=== PATIENT | male | born 1940 | race Caucasian/White ===

== ENCOUNTER 2018-01-24 14:39 | Emergency (ER) | END 2018-01-24 17:14 | disposition home or self-care (01) ==

== ENCOUNTER → 2019-02-06 | Day surgery (SDC) | payer MEDICARE, BC ==
[~2019-02-06] VITALS: Ht 172.7 cm; Wt 113.7 kg
[~2019-02-06] MED LIST: BENA1TAB3 PO; COUMADIN; DILT240C70 PO; FENTAnyl 50 MCG/ML VIAL ONE; FERR27TA PO; HCTZ DAILY; IRON DAILY; KETOROLAC; LIDOCAINE 4% SOLUTION 50 ML BTL ONE; MIDAZOLAM 1 MG/ML 2 ML INJ ONE; PANT20TA2 PO; PANTOPRAZOLE DAILY; WARFARIN
[2019-02-06 14:08] VITALS: Ht 172.7 cm; Wt 113.7 kg
--- NOTE | 2019-02-06 14:35 | PREAC ---
Date/Time of Note Date/Time of Note DATE: 02/06/19 TIME: 14:34 Anesthesia Eval and Record Evaluation Time Pre-Procedure Interview DATE: 02/06/19 TIME: 14:34 Age 78 Sex male NPO: 8 hrs Preoperative diagnosis egd Planned procedure egd Past Medical History Past Medical History: Includes Cardio: HTN, Other (hx of DVT on warfarin stopped december 15 ) GI: GERD, Obesity Heme: Anemia Surgery & Anesthesia Issues No known issue Meds Anticoagulation: No Beta Adriane within 24 hr: No Reason Beta Adriane not given: Pt. not on B-Adriane Reported Medications [Iron Daily] No Conflict Check 02/06/19 [Warfarin ] No Conflict Check 02/06/19 [Ketorolac ] No Conflict Check 02/06/19 [Pantoprazole Daily] No Conflict Check 02/06/19 [Hctz Daily] No Conflict Check 02/06/19 [Coumadin] No Conflict Check, 5 MG DAILY 11/16/13 Ferrous Sulfate (Iron) 1 Tab Tablet, 1 TAB PO BID 11/04/11 Pantoprazole* (Protonix*) 20 Mg Tablet.dr, 20 MG PO BID 11/04/11 Benazepril/Hydrochlorothiazide (Benazepril-Hctz 20-12.5 Mg Tab) 1 Tab Tablet, 1 PO DAILY 10/18/11 Diltiazem Hcl (Diltiazem Er) 240 Mg Capsule.cr, 1 PO DAILY 10/18/11 Meds reviewed: Yes Allergies Coded Allergies: No Known Allergy (Verified , 02/06/19) Allergies Reviewed: Yes Labs/Studies Labs Reviewed: Reviewed by anesthesiologist test: N/A Pre-procedure Exam Airway: Adequate mouth opening, Adequate thyromental dist Mallampati: Mallampati IV Teeth: Normal Lung: Normal Heart: Normal ASA Physical Status ASA physical status: 3 Emergency: None Pre-operative Attestations Prior to commencing anesthesia and surgery, the patient was re-evaluated, there was verification of: *The patient's identity *The results of appropriate recent lab work and preoperative vital signs *The above evaluation not changing prior to induction *Anesthetic plan, risk benefits, alternative and complications discussed with patient/family; questions answered; patient/family understands, accepts and wishes to proceed. SABINE ALLISON DO Feb 06, 2019 14:35
[2019-02-06 14:55] VITALS: BP 162/78; PULSE 76; RESP 20
--- NOTE | 2019-02-06 15:36 | PAC ---
Date/Time of Note Date/Time of Note DATE: 02/06/19 TIME: 15:36 Post-Anesthesia Notes Post-Anesthesia Note Last documented vital signs 133/62 69 18 99% 98 Activity: WNL Respiratory function: WNL Cardiovascular function: WNL Mental status: Baseline Pain reasonably controlled: Yes Hydration appropriate: Yes Nausea/Vomiting absent: Yes SABINE ALLISON DO Feb 06, 2019 15:36
[2019-02-06 16:01] VITALS: BP 152/77; RESP 14
== END | disposition home or self-care (01) ==
LOC: GIL 12:43
PROVIDERS: ATTEND Internal Medicine Gastroenterology
DX: K44.9 Diaphragmatic hernia without obstruction or gangrene (principal); K31.811 Angiodysplasia of stomach and duodenum with bleeding; I10 Essential (primary) hypertension; Z86.718 Personal history of other venous thrombosis and embolism
CPT/HCPCS: 43235; J2250; J3010

== ENCOUNTER 2019-04-10 11:10 | Day surgery (SDC) | payer MEDICARE, BC ==
[~2019-04-10] VITALS: Ht 172.7 cm; Wt 113.2 kg
[~2019-04-10 11:10] MED LIST changes: -FENTAnyl 50 MCG/ML VIAL ONE; -LIDOCAINE 4% SOLUTION 50 ML BTL ONE; -MIDAZOLAM 1 MG/ML 2 ML INJ ONE
[2019-04-10] MEDS ORDERED: LATANOPROST (12:38)
[2019-04-10 12:48] VITALS: BP 153/89; PULSE 74; RESP 21
[2019-04-10 12:52] VITALS: Ht 172.7 cm; Wt 113.2 kg
--- NOTE | 2019-04-10 12:57 | PREAC ---
Date/Time of Note Date/Time of Note DATE: 04/10/19 TIME: 12:54 Anesthesia Eval and Record Evaluation Time Pre-Procedure Interview DATE: 04/10/19 TIME: 12:54 Age 78 Sex male NPO: 8 hrs Preoperative diagnosis anemia Planned procedure EGD Past Medical History Past Medical History: Includes (park's esophagus, hx colon CA, colon polyps; diverticulosis; hx DVT, HTN, hiatal hernia) Cardio: HTN Surgery & Anesthesia Issues No known issue (IVC filter, colon resection; hernia repair; appe) Meds Anticoagulation: No Beta Adriane within 24 hr: No Reason Beta Adriane not given: Pt. not on B-Adriane Reported Medications [Latanoprost] No Conflict Check 04/10/19 [Iron Daily] No Conflict Check 02/06/19 [Ketorolac ] No Conflict Check 02/06/19 [Pantoprazole Daily] No Conflict Check 02/06/19 [Hctz Daily] No Conflict Check 02/06/19 [Coumadin] No Conflict Check, 5 MG DAILY 11/16/13 Ferrous Sulfate (Iron) 1 Tab Tablet, 1 TAB PO BID 11/04/11 Pantoprazole* (Protonix*) 20 Mg Tablet.dr, 20 MG PO BID 11/04/11 Benazepril/Hydrochlorothiazide (Benazepril-Hctz 20-12.5 Mg Tab) 1 Tab Tablet, 1 PO DAILY 10/18/11 Diltiazem Hcl (Diltiazem Er) 240 Mg Capsule.cr, 1 PO DAILY 10/18/11 Discontinued Reported Medications [Warfarin ] No Conflict Check 02/06/19 Meds reviewed: Yes Allergies Coded Allergies: No Known Allergy (Verified , 02/06/19) Allergies Reviewed: Yes Labs/Studies Labs Reviewed: Reviewed by anesthesiologist test: N/A Studies: ECG Pre-procedure Exam Airway: Adequate mouth opening, Adequate thyromental dist Mallampati: Mallampati II Teeth: Normal Lung: Normal Heart: Normal ASA Physical Status ASA physical status: 3 Emergency: None Planned Anesthetic General/MAC: MAC Pre-operative Attestations Prior to commencing anesthesia and surgery, the patient was re-evaluated, there was verification of: *The patient's identity *The results of appropriate recent lab work and preoperative vital signs *The above evaluation not changing prior to induction *Anesthetic plan, risk benefits, alternative and complications discussed with patient/family; questions answered; patient/family understands, accepts and wishes to proceed. SHONDA SIDHU Apr 10, 2019 12:57
[2019-04-10] MEDS ORDERED: ALBUTEROL 0.083% (NEB) 2.5 MG/3 ML AMP HHN PRN (13:00)
[2019-04-10] MEDS ORDERED: ONDANSETRON 4 MG INJ IV PRN (13:00)
[2019-04-10] MEDS ORDERED: ACETAMINOPHEN 500 MG TAB PO PRN (13:00)
[2019-04-10] MEDS ORDERED: FENTAnyl 50 MCG/ML VIAL IV PRN (13:00)
[2019-04-10] MEDS ORDERED: PROPOFOL 40 ML ONE (13:09)
[2019-04-10] MEDS ORDERED: PROPOFOL 20 ML ONE (13:09)
--- NOTE | 2019-04-10 13:34 | PAC ---
Date/Time of Note Date/Time of Note DATE: 04/10/19 TIME: 13:32 Post-Anesthesia Notes Post-Anesthesia Note Last documented vital signs @1318 136/70; hr 67; rr 16; temp 98; spo2 100%; bigeminy runs noted; no symptoms and vss no changes/drops in BP/HR; instructed staff to monitor Activity: WNL Respiratory function: WNL Cardiovascular function: WNL Mental status: Baseline Pain reasonably controlled: Yes Hydration appropriate: Yes Nausea/Vomiting absent: Yes SHONDA SIDHU Apr 10, 2019 13:34
--- NOTE | 2019-04-10 20:25 | GILP ---
DATE OF PROCEDURE: 04/10/2019 PROCEDURE: Upper gastrointestinal endoscopy and argon plasma coagulation to control bleeding. INDICATIONS: Known gastric antral vascular ectasias. FINDINGS: After informed consent, the patient was placed in lateral position and sedated per anesthe maldonado. The Olympus video upper endoscope was easily passed in the patient's esophagus. The instrument is a hiatal hernia. Stomach was entered. The pylorus was seen. The duodenal bulb and second porti on of duodenum appeared normal. Within the antrum, there were some vascular ectasias that were seen. This was dramatically improved from previous examination. Argon plasma coagulation was applied to these areas of vascular ectasias. There was no intraoperative bleeding in these sites. There were n o obvious residual vascular ectasias left at the conclusion of the procedure. The instrument was use d to perform a turnaround which did not reveal any other pathology. The instrument was removed from the patient's mouth. The patient tolerated the procedure well. COMPLICATIONS: None. IMPRESSION: 1. Argon plasma coagulation of gastric antral vascular ectasias to control bleeding. 2. Hiatal hernia. PLAN: 1. Postoperative instructions given to the patient. 2. Follow up pending clinical course. Dictated By: JENNA ALBARRAN/EDYTA Conf#: [id number] DID#: [id number] CC: BRIANNA HERNANDEZ MD;*End*
== END 2019-04-10 15:02 | disposition home or self-care (01) ==
LOC: GIL 11:10
PROVIDERS: ATTEND Internal Medicine Gastroenterology
DX: K31.811 Angiodysplasia of stomach and duodenum with bleeding (principal); K44.9 Diaphragmatic hernia without obstruction or gangrene; D50.9 Iron deficiency anemia, unspecified; I10 Essential (primary) hypertension